=== PATIENT | female | born 1990 | race Caucasian/White ===

== ENCOUNTER 2016-08-21 19:05 | Emergency (ER) | payer OTHER ==
[~2016-08-21] VITALS: Ht 149.9 cm; Wt 60.3 kg
[2016-08-21 19:30] VITALS: BP 137/61; TEMP 36.8; Ht 149.9 cm; Wt 60.3 kg
[2016-08-21] MEDS ORDERED: NAPROXEN 250 MG TAB PO STA (19:52)
--- NOTE | 2016-08-21 20:08 | EMERGENCY ROOM VISIT NOTE ---
ED Visit Note First contact with patient: 19:39 Chief Complaint: Allergic Reaction to Allergy Shot, Migraine History of Present Illness: Patient is a 25-year-old female who presents to the emergency Department this evening for evaluation of pain to the RIGHT upper arm after receiving her allergy shot last evening. She reports there is now red and swollen and itchy. She reports that this is causing migraine headache. She reports a history of similar headaches. This is not the worst headache of her life. She is tried nothing [id number] for her symptoms. She reports that she started her injections 3 months ago. She received injections weekly. She has had similar reactions but nothing this intense. She rates her current discomfort is 7/10. She denies any fevers, chills, throat tightness, throat swelling, short of breath, stridor, wheezing, cough, blurry vision, double vision, slurred speech, facial droop, unilateral weakness/numbness, nausea, vomiting. Medications: Reviewed and discussed with the patient. Allergies: No known allergies. PMH: As above. SHx: Patient is a 25-year-old female who lives locally. ROS: All pertinent positive and negative review of systems are appropriately documented in the History of Present Illness. Physical Exam: VITAL SIGNS - Vital signs and nursing notes were reviewed. GENERAL - 25-year-old female appearing her stated age who is in no acute distress. Communicates well with provider and answers questions appropriately. SKIN - Mild trace erythema noted to the RIGHT upper arm. No warmth to touch. No tenderness to palpation. No lymphangitic streaking. HEAD - Normocephalic, Atraumatic. No Mabry's Sign or Raccoon's Eyes. No depressed skull fractures palpable. EYES - PERRL with EOMI bilaterally. Sclera anicteric. Palpebral conjunctiva pink and moist with no injection noted. EARS - No deformities of external structures noted on gross examination bilaterally. No pain elicited with palpation of the tragus bilaterally. External auditory canals without discharge or otorrhea. Tympanic membranes pearly us without retraction or bulging. NOSE - Midline and without cyanosis. No epistaxis or purulent drainage noted. Septum midline without deviation or septal hematoma noted. MOUTH/OROPHARYNX - Without perioral cyanosis. Buccal mucosa pink and moist and without leukoplakia. Tongue midline with equal elevation of palate bilaterally. No tonsillar hypertrophy, erythema, or exudates noted. NECK - Neck with FROM. Supple to palpation. No lymphadenopathy noted. No nuchal rigidity. LUNGS - Chest wall symmetric without accessory muscle use, intercostals retractions, or central cyanosis. Normal vesicular breath sounds CTA B/L. No wheezes, rales, or rhonchi appreciated. CARDIAC - RRR with S1/S2. No murmur, rubs, or gallops appreciated. ABDOMEN - Abdominal contour flat and without pulsations or visible masses. BS normoactive all four quadrants. No tenderness, palpable masses, hepatosplenomegaly, or ascites noted. EXTREMITIES - No pretibial edema present. +3/5 radial and dorsalis pedis pulses palpated throughout. FROM with no tremors, fasciculations, or clonus noted on PROM throughout. +5/5 strength noted in UE/LE bilaterally. NEUROLOGIC - Cranial nerves II through XII grossly intact. Sensory intact to light touch throughout. Patellar reflexes +2/4. Patient able to perform rapid alternating movements appropriately. Negative Pronator Drift. PSYCH - A&Ox3 and cooperates fully with examiner. Pt is very pleasant and interacts well with examiner. ED Course: Patient was seen and evaluated by myself. I had a lengthy discussion with the patient regarding her symptoms. She presents today after having a localized reaction to her allergy injection. She has no fever. Her exam is otherwise unremarkable. She combines of a headache. She has no acute neurological findings on exam. I do not feel that imaging studies her labs are necessary at this point. The patient was treated with naproxen and Benadryl. She was encouraged to follow up with her primary care provider and flooring grader from today' s visit. She was educated on worrisome symptoms for return visit to the emergency department. Patient discharged home in good condition. In the evaluation and treatment of this patient, the following differential diagnoses were considered: Cellulitis, dermatitis, Migraine Headache, Intracranial Hemorrhage, Subdural Hematoma, Subarachnoid Hemorrhage, Cerebral Aneurysm, Temporal/Giant Cell Arteritis, Tension Headache, Meningitis, Encephalitis, or Hydrocephalus. Impression: Localized Reaction to Allergy Shot (RIGHT Upper Arm), Migraine Discharge Instructions: You have been seen in the emergency department today for your localized reaction to your allergy shot. You have been also seen for your migraine headache. You should take Benadryl (diphenhydramine) 25-50 mg orally every 4-6 hours for the next 5-7 days. This medication is [id number] and you will NOT need a prescription to purchase this at your local pharmacy. You should continue taking the Benadryl for the COMPLETION of the 5-7 days. This is to prevent a rebound allergic reaction in the event that allergens are still present in your system. For pain control, you can use the following ixxg-opj-[id number] medicines (if >12 yo): - Regular strength (325mg/tab) Tylenol (acetaminophen) 2 tabs every 4-6 hours as needed. Do not exceed 12 tablets in a 24 hour period. Avoid taking more than 4 grams (4000 mg) of Tylenol per day. This includes any other sources of acetaminophen you may take on a regular basis. - Regular strength (200 mg/tab) Advil (ibuprofen) 1-2 tabs every 4-6 hours as needed. Do not exceed a dose of 3200 mg per day. Follow-up with your flooring grader as discussed. Return for any changing or worsening symptoms. Current/Historical Medications No Active Prescriptions or Reported Meds Allergies Coded Allergies: No Known Allergies (Unverified , 08/21/16) Vital Signs Date Time Temp Pulse Resp B/P Pulse Ox O2 Delivery O2 Flow Rate FiO2 08/21/16 20:40 86 20 98 Room Air 08/21/16 19:30 36.8 86 20 137/61 98 Room Air Medications Administered Medications (Trade) Dose Ordered Sig/Mandeep Route Start Time Stop Time Status Last Admin Dose Admin Naproxen (Naprosyn Tab) 500 mg NOW STAT PO 08/21/16 19:52 08/21/16 19:53 DC 08/21/16 20:23 500 MG Diphenhydramine HCl (Benadryl Cap) 25 mg NOW ONCE PO 08/21/16 20:00 08/21/16 20:01 DC 08/21/16 20:23 25 MG Departure Information Impression Primary Impression: localized reaction to allergy shot Additional Impressions: Local reaction to immunization, Migraine Dispostion Home / Self-Care Condition GOOD Prescriptions No Active Prescriptions or Reported Meds Referrals No Doctor, Assigned (PCP) Patient Instructions A Signature Page, [facility] Additional Instructions You have been seen in the emergency department today for your localized reaction to your allergy shot. You have been also seen for your migraine headache. You should take Benadryl (diphenhydramine) 25-50 mg orally every 4-6 hours for the next 5-7 days. This medication is [id number]-lvlmtrd and you will NOT need a prescription to purchase this at your local pharmacy. You should continue taking the Benadryl for the COMPLETION of the 5-7 days. This is to prevent a rebound allergic reaction in the event that allergens are still present in your system. For pain control, you can use the following fpob-fra-vmlizhh medicines (if >12 yo): - Regular strength (325mg/tab) Tylenol (acetaminophen) 2 tabs every 4-6 hours as needed. Do not exceed 12 tablets in a 24 hour period. Avoid taking more than 4 grams (4000 mg) of Tylenol per day. This includes any other sources of acetaminophen you may take on a regular basis. - Regular strength (200 mg/tab) Advil (ibuprofen) 1-2 tabs every 4-6 hours as needed. Do not exceed a dose of 3200 mg per day. Follow-up with your flooring grader as discussed. Return for any changing or worsening symptoms.
[2016-08-21 20:40] VITALS: PULSE 86; O2SAT 98
== END 2016-08-21 20:24 | disposition home or self-care (01) ==
LOC: C.EDB 19:08 → C.EDD 20:24
DX: T88.1XXA Other complications following immunization, not elsewhere classified, initial encounter (principal); X58.XXXA Exposure to other specified factors, initial encounter; G43.909 Migraine, unspecified, not intractable, without status migrainosus